=== PATIENT | female | born 1940 | race Caucasian/White ===

== ENCOUNTER → 2017-12-03 | Outpatient (CLI) | payer MEDICARE ==
[~2017-12-03] MED LIST: ALPR.5; ASPI325 PO; ATEN25; ATEN25 PO; ATOR10; CLOP75; ESCI10; LISI5; LOVA20 PO; NITR.4SL; OMEP10ER; OXYACE5T PO; POTCHL20ER PO; PROM25 PO; RXOXYACE PO; THYR60; UBID10 PO
[2017-12-03 12:14] LABS: CHOL/HDL RATIO 3.7; Cholesterol 256 mg/dL (50-200); HDL Cholesterol 69 mg/dL (>39); LDL/HDL RATIO 2.3; Low Density Lipoprotein Chol 159 mg/dL (0-110); Triglycerides 141 mg/dL (30-160); Very Low Density Lipoprot Chol 28 mg/dL (6-32)
== END ==
LOC: LAB 10:54 → LAB SHORT 10:54
PROVIDERS: Internal Medicine
DX: E78.5 Hyperlipidemia, unspecified (principal)
CPT/HCPCS: 80061

== ENCOUNTER → 2019-12-02 | Outpatient (CLI) | payer MEDICARE ==
[2019-12-02 17:38] LABS: Creatinine, Urine Random 94.6 mg/dL (27.00-270.00)
[2019-12-02 17:40] LABS: Microalb/Creat Ratio UR, Rand 67.759 mg/g (0.000-30.000); Microalbumin, Random Urine 64.1 mg/L (0.000-20.000)
== END | disposition home or self-care (01) ==
LOC: LAB 14:30 → LAB SHORT 14:30
PROVIDERS: Nurse Practitioner Family
DX: I25.10 Atherosclerotic heart disease of native coronary artery without angina pectoris (principal); J44.9 Chronic obstructive pulmonary disease, unspecified; J34.9 Unspecified disorder of nose and nasal sinuses; I10 Essential (primary) hypertension; E78.5 Hyperlipidemia, unspecified; E03.9 Hypothyroidism, unspecified; F32.9 Major depressive disorder, single episode, unspecified; M79.7 Fibromyalgia; E66.9 Obesity, unspecified; L85.3 Xerosis cutis; Z78.0 Asymptomatic menopausal state
CPT/HCPCS: 82043; 82570

== ENCOUNTER → 2022-10-26 | Outpatient (CLI) | payer MEDICARE | END | disposition home or self-care (01) | LOC: LAB SHORT 11:38 | DX: N39.0 Urinary tract infection, site not specified (principal) | CPT/HCPCS: 87086 ==

== ENCOUNTER 2023-01-19 03:42 | Inpatient (IN) | payer MEDICARE ==
[~2023-01-19] VITALS: Ht 157.5 cm; Wt 91.8 kg
[~2023-01-19 03:42] MED LIST changes: -ALPR.5; +ALPR.5 PO
[2023-01-19 04:41] LABS: BASOPHILS ABSOLUTE AUTO 0.07 K/mm3 (0.00-0.23); BASOPHILS PERCENT AUTO 1 % (0-2); EOSINOPHILS ABSOLUTE AUTO 0.32 K/mm3 (0.00-0.68); EOSINOPHILS PERCENT AUTO 3 % (0-6); Hematocrit 41.2 % (33.0-51.0); Hemoglobin 13.7 g/dL (11.5-16.0); IMMATURE GRAN ABSOLUTE AUTO 0.05 K/mm3 (0.00-0.10); IMMATURE GRAN PERCENT AUTO 0 % (0-1); LYMPHOCYTES ABSOLUTE AUTO 2.82 K/mm3 (0.84-5.20); LYMPHOCYTES PERCENT AUTO 22 % (21-46); MONOCYTES ABSOLUTE AUTO 1.14 K/mm3 (0.16-1.47); MONOCYTES PERCENT AUTO 9 % (4-13); Mean Corpuscular HGB 30.9 pg (26.0-34.0); Mean Corpuscular HGB Conc 33.3 g/dL (31.5-36.5); Mean Corpuscular Volume 93 fL (80-100); Mean Platelet Volume 9.8 fL (9.1-12.4); NEUTROPHILS ABSOLUTE AUTO 8.62 K/mm3 (1.96-9.15); NEUTROPHILS PERCENT AUTO 66 % (41-73); Platelet Count 278 K/mm3 (150-400); RDW Coefficient Variation 13.3 % (11.7-14.2); RDW Standard Deviation 45.4 fL (35.1-46.3); Red Blood Cell Count 4.43 M/mm3 (3.80-5.20); White Blood Cell Count 13.02 K/mm3 (4.00-11.30)
[2023-01-19] MEDS ORDERED: MULVITA PO (04:44)
[2023-01-19 05:02] LABS: Albumin, Blood 3.1 g/dL (3.4-5.0); Albumin/Globulin Ratio 0.8 (0.8-1.8); Bilirubin, Total 0.4 mg/dL (0.1-1.0); Bun/Creatinine Ratio 20.3 (12.0-20.0); Calcium, Blood 8.9 mg/dL (8.5-10.1); Creatinine, Blood 0.94 mg/dL (0.40-1.00); Total Protein, Blood 7.1 g/dL (6.4-8.2)
[2023-01-19 06:09] LABS: Source, Urine Clean Catch
[2023-01-19 06:17] LABS: Appearance, Urine Hazy (Clear); Bilirubin, Urine Neg (Neg); Blood, Urine 1+ (Neg); Color, Urine Pale Yellow (P-Yellow); Glucose Qualitative, Urine Neg (Neg); Ketones, Urine Neg (Neg); Leukocyte Esterase, Urine 3+ (Neg); Nitrite, Urine Neg (Neg); Protein, Urine 1+ (Neg); Specific Gravity, Urine 1.005 (1.003-1.022); Urobilinogen, Urine NORM (Normal); pH, Urine 6.5 (5.0-8.0)
[2023-01-19 06:18] LABS: Bacteria Few /hpf; Red Blood Cells, Urine 0-2 /hpf (0-2); Squamous Epithelial Cells Few /hpf (Few)
[2023-01-19 10:01] VITALS: BP 114/69
[2023-01-19 15:37] VITALS: BP 121/51
--- NOTE | 2023-01-19 17:53 | NUR ---
PT ARRIVED AT 1000 TO MEDICAL FLOOR ABLE TO TRANSFER SB ASSIST. PT A&O X4. PT VERY PLEASANT AND COOPERATIVE WITH CARE. PT DAUGHTER AT BEDSIDE THROUGHOUT SHIFT ALSO VERY PLEASANT. PT CONTINTENT TO BEDSIDE COMMODE. PT HAD LG CONTINENT BM THIS SHIFT. KCL NS RUNNING @ 75/HR. PT RECEIVING AMPICILLIN Q6. DR. AREVALO ARRIVED TO PT ROOM TO DISCUSS POSSIBLE SURGERY. SURGERY NOT NEEDED AT THIS TIME. PLAN TO CONTINUE IV ABX AND REASSESS IN A FEW DAYS. PT C/O PAIN IN LOWER LEFT ABDOMEN WITH PALPATION. PT RECEIVED TYLENOL FOR 7/10 PAIN IN HEAD. CALL LIGHT IN REACH. BED IN LOWEST POSITION. WILL CONTINUE TO MONITOR.
--- NOTE | 2023-01-19 18:34 | NUR ---
FIRE SAFETY DISCUSSED WITH PT ON ADMISSION. PT IS PREVIOUS SMOKER AND QUIT OVER 30 YEARS AGO. PT VERBALIZED UNDERSTANDING OF SAFETY PRECAUTIONS.
[2023-01-19 19:18] VITALS: BP 127/52
[2023-01-19] MEDS ORDERED: LEVSOD112 PO (20:10)
--- NOTE | 2023-01-20 | NUR ---
LEVOTHYROXINE CONFIRMED DAUGHTER CALLED TO CONFIRM LEVO DOSE 112 MCG FOR HOME MEDS.
[2023-01-20 02:05] VITALS: BP 144/52
[2023-01-20 03:59] LABS: BASOPHILS ABSOLUTE AUTO 0.04 K/mm3 (0.00-0.23); BASOPHILS PERCENT AUTO 0 % (0-2); EOSINOPHILS ABSOLUTE AUTO 0.37 K/mm3 (0.00-0.68); EOSINOPHILS PERCENT AUTO 4 % (0-6); Hematocrit 39.2 % (33.0-51.0); Hemoglobin 12.8 g/dL (11.5-16.0); IMMATURE GRAN ABSOLUTE AUTO 0.03 K/mm3 (0.00-0.10); IMMATURE GRAN PERCENT AUTO 0 % (0-1); LYMPHOCYTES ABSOLUTE AUTO 2.06 K/mm3 (0.84-5.20); LYMPHOCYTES PERCENT AUTO 22 % (21-46); MONOCYTES ABSOLUTE AUTO 0.83 K/mm3 (0.16-1.47); MONOCYTES PERCENT AUTO 9 % (4-13); Mean Corpuscular HGB 30.5 pg (26.0-34.0); Mean Corpuscular HGB Conc 32.7 g/dL (31.5-36.5); Mean Corpuscular Volume 94 fL (80-100); Mean Platelet Volume 9.8 fL (9.1-12.4); NEUTROPHILS ABSOLUTE AUTO 6.05 K/mm3 (1.96-9.15); NEUTROPHILS PERCENT AUTO 65 % (41-73); Platelet Count 237 K/mm3 (150-400); RDW Coefficient Variation 13.4 % (11.7-14.2); RDW Standard Deviation 45.9 fL (35.1-46.3); Red Blood Cell Count 4.19 M/mm3 (3.80-5.20); White Blood Cell Count 9.38 K/mm3 (4.00-11.30)
[2023-01-20 04:28] LABS: Free Thyroxine 1.02 ng/dL (0.70-1.60)
[2023-01-20 04:33] LABS: Bun/Creatinine Ratio 12.4 (12.0-20.0); Calcium, Blood 8.5 mg/dL (8.5-10.1); Creatinine, Blood 0.88 mg/dL (0.40-1.00); Thyroid Stimulating Hormone 5.25 uIU/mL (0.360-4.800)
--- NOTE | 2023-01-20 06:20 | NUR ---
SHIFT SUMMARY ADMIT FOR DIVERTICULITIS W/ ABSCESS. A&OX4, VSS, PT DENIES PAIN UNLESS PALPATING ABD, SOB, DIZZINESS. 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 1PERSON SBA TO [facility]. NO ACUTE CHANGES THIS SHIFT. CALL LIGHT W/IN REACH.
[2023-01-20 07:20] VITALS: BP 116/55
--- NOTE | 2023-01-20 17:43 | NUR ---
SHIFT SUMMARY: PT A&O X4. PT PLEASANT AND COOPERATIVE WITH CARE. IV ABX AND NS KCL CONTINUE TO RUN INTO IV. NEW IV PLACED IN LEFT FOREARM DUE TO PAIN/TENDERNESS IN PREVIOUS IV SITE. PT C/O PAIN IN BACK THIS SHIFT. HEAT PAD PROVIDED AND STATES SHE IS FEELING MUCH BETTER. PT HAD 3/10 PAIN IN LOWER LEFT QUADRANT THIS AM. TYLENOL PROVIDED. NO ISSUES WITH PAIN THIS AFTERNOON. PT HAVING SOLID BM'S W/O ISSUES. PER DR. AREVALO NOTE HOLDING ASPIRIN. PT MADE AWARE BY [employer] CONDITIONING APPRENTICE AND THIS RN DURING ROUNDS OF FLAMMABLE SOURCES AROUND OXYGEN. PT STATES UNDERSTANDING. CALL LIGHT IN PLACE, BED IN LOWEST POSITION. WILL CONTINUE TO MONITOR.
[2023-01-20 19:34] VITALS: BP 127/69
--- NOTE | 2023-01-20 20:20 | NUR ---
ANXIETY PT REPORTS HAVING A PANIC/ ANXIETY EPISODE. 0.25MG XANAX GIVEN THIS IS WHAT SHE TAKES AT HOME. CONTINUE TO MONITOR.
[2023-01-21 04:53] LABS: BASOPHILS ABSOLUTE AUTO 0.05 K/mm3 (0.00-0.23); BASOPHILS PERCENT AUTO 1 % (0-2); EOSINOPHILS ABSOLUTE AUTO 0.38 K/mm3 (0.00-0.68); EOSINOPHILS PERCENT AUTO 4 % (0-6); Hematocrit 36.5 % (33.0-51.0); IMMATURE GRAN ABSOLUTE AUTO 0.05 K/mm3 (0.00-0.10); IMMATURE GRAN PERCENT AUTO 1 % (0-1); LYMPHOCYTES ABSOLUTE AUTO 2.06 K/mm3 (0.84-5.20); LYMPHOCYTES PERCENT AUTO 22 % (21-46); MONOCYTES ABSOLUTE AUTO 0.82 K/mm3 (0.16-1.47); MONOCYTES PERCENT AUTO 9 % (4-13); Mean Corpuscular HGB 31.3 pg (26.0-34.0); Mean Corpuscular HGB Conc 32.9 g/dL (31.5-36.5); Mean Corpuscular Volume 95 fL (80-100); NEUTROPHILS ABSOLUTE AUTO 6.24 K/mm3 (1.96-9.15); NEUTROPHILS PERCENT AUTO 65 % (41-73); Platelet Count 231 K/mm3 (150-400); RDW Coefficient Variation 13.5 % (11.7-14.2); RDW Standard Deviation 47.2 fL (35.1-46.3); Red Blood Cell Count 3.83 M/mm3 (3.80-5.20)
[2023-01-21 05:16] LABS: Bun/Creatinine Ratio 9.8 (12.0-20.0); Calcium, Blood 8.3 mg/dL (8.5-10.1); Creatinine, Blood 0.92 mg/dL (0.40-1.00); Potassium, Blood 3.8 mmol/L (3.5-5.5)
--- NOTE | 2023-01-21 05:16 | NUR ---
SHIFT SUMMARY ADMIT FOR DIVERTICULITIS W/ ABSCESS. A&OX4 VERY PLEASANT. PT CONTINUES TO HAVE MUCUS DISCHARGE, REPORTED FROM BOWELS. SOFT BM'S X3 THIS SHIFT. ADULT BRIEFS IN PLACE FOR URGENCY INCONT OF BOWEL AND BLADDER, PT USE OF BSC W/ SBA/ INDEPEN. PT EXPERIENCED ANXIETY EPISODE THIS EVENING THAT WAS RELIEVED W/ 0.25MG XANAX. PT REPORTS OCCASIONALY ANXIETY/ PANIC ATTACKS AT HOME. NEW IV TO RIGHT FA PLACED R/T LEAKING L FA IV. NS KCL FLUIDS CONTINUED PER ORDERS. NO ACUTE CHANGES THIS SHIFT. WILL REPORT OFF TO DAY SHIFT STAFF.
[2023-01-21 07:43] VITALS: BP 125/106
--- NOTE | 2023-01-21 10:16 | NUR ---
EDUCATED ON FIRE SAFETY PT VERBALIZED UNDERSTANDING.
[2023-01-21 15:04] VITALS: BP 125/113
[2023-01-21 16:24] VITALS: BP 128/56
--- NOTE | 2023-01-21 18:06 | NUR ---
SUMMARY NO ACUTE CHANGES T/O SHIFT. PT WORKED WITH THERAPY AND AMBULATED IN GONZ[place]Z. GETTING UP TO BSC WITH MIN ASSIST. HAVING SOFT BMS AND VOIDING. PT PASSING MUCUS DISCHARGE RECTALLY, THIS EVENING IT WAS CARSON WITH VERY SLIGHT PINK TINGE. PT TOLERATING FULL LIQUID DIET. REVIEWED FIRE SAFETY WITH PT; PT VERBALIZED UNDERSTANDING AND DENIES ANY TOBACCO PRODUCTS OR LIGHTERS/MATCHES. CALL LIGHT IN REACH.
[2023-01-21 19:52] VITALS: BP 129/55
[2023-01-22 02:40] VITALS: BP 116/49
[2023-01-22 07:22] VITALS: BP 146/67
[2023-01-22] MEDS ORDERED: VISBIOME 112.51 EACH PO (09:34)
[2023-01-22] MEDS ORDERED: EUTHYROX125 MCG PO (09:34)
[2023-01-22] MEDS ORDERED: METR500 PO (09:35)
[2023-01-22] MEDS ORDERED: AMOCLA500 PO (09:35)
--- NOTE | 2023-01-22 10:17 | NUR ---
DENIES ANY ABD PAIN THIS AM, REPORTS TOLERATING FULL LIQUID DIET.
--- NOTE | 2023-01-22 11:17 | NUR ---
DC INSTRUCTIONS GIVEN, VERBALIZED UNDERSTANDING, PT TO DC HOME WITH DAUGHTER, RX CALLED TO [facility].
== END 2023-01-22 11:28 | disposition home or self-care (01) | DRG 392 ==
LOC: ER 03:42 → SURS 08:44 → MEDS 08:44 → ENPENDDIS 01-22 10:46 → MEDS 01-22 11:28
PROVIDERS: Emergency Medicine; ADMIT Internal Medicine
DX: K57.20 Diverticulitis of large intestine with perforation and abscess without bleeding (principal); N39.0 Urinary tract infection, site not specified; Z68.41 Body mass index [BMI] 40.0-44.9, adult; Q60.0 Renal agenesis, unilateral; E03.9 Hypothyroidism, unspecified; K21.9 Gastro-esophageal reflux disease without esophagitis; I10 Essential (primary) hypertension; E78.5 Hyperlipidemia, unspecified; F32.A Depression, unspecified; F41.9 Anxiety disorder, unspecified; I25.10 Atherosclerotic heart disease of native coronary artery without angina pectoris; K58.9 Irritable bowel syndrome, unspecified; E66.01 Morbid (severe) obesity due to excess calories; Z95.5 Presence of coronary angioplasty implant and graft; Z88.1 Allergy status to other antibiotic agents; Z88.5 Allergy status to narcotic agent; Z79.82 Long term (current) use of aspirin; Z79.899 Other long term (current) drug therapy; Z79.891 Long term (current) use of opiate analgesic; I25.2 Old myocardial infarction; Z87.891 Personal history of nicotine dependence; Z98.49 Cataract extraction status, unspecified eye; Z90.49 Acquired absence of other specified parts of digestive tract; Z98.890 Other specified postprocedural states; Z87.81 Personal history of (healed) traumatic fracture; Z87.442 Personal history of urinary calculi
CPT/HCPCS: 36415; 74177; 80048; 80053; 81001; 83690; 84439; 84443; 85025; 87086; 93005; 93010; 96365-59; 97161; 97165; 97530-CQ; 97535; 99285-25; A9270; J0295; J2543; J3480; Q9967

== ENCOUNTER 2023-08-28 02:11 | Inpatient (IN) | payer MEDICARE ==
[2023-08-28] VITALS (12 sets, daily range): BP systolic 11–125; BP diastolic 44–92
[~2023-08-28] VITALS: Ht 154.9 cm; Wt 69.2 kg
[~2023-08-28 02:11] MED LIST changes: +AMOCLA500 PO; -ASPI325 PO; +Aspir 8181 MG PO; -ESCI10; +ESCI10 PO; +EUTHYROX125 MCG PO; +LEVSOD112 PO; +METR500 PO; +MULVITA PO; +VISBIOME 112.51 EACH PO
[2023-08-28] MEDS ORDERED: NS 1,000 ML IV SCH ×2 (02:55→21:35)
[2023-08-28] MEDS ORDERED: Ketorolac Tromethamine 30mg Vial IV ONE (03:00)
[2023-08-28] MEDS ORDERED: Lidocaine 4% 1 Patch TOP ONE (03:40)
[2023-08-28 03:46] LABS: Albumin, Blood 3.6 g/dL (3.4-5.0); Albumin/Globulin Ratio 0.9 (0.8-1.8); Bilirubin, Total 0.8 mg/dL (0.1-1.0); Bun/Creatinine Ratio 23.7 (12.0-20.0); Calcium, Blood 8.6 mg/dL (8.5-10.1); Creatinine, Blood 0.89 mg/dL (0.40-1.00); Globulin, Blood 3.8 g/dL (2.2-4.0); Magnesium, Blood 1.5 mg/dL (1.6-2.4); Phosphorus, Blood 3.2 mg/dL (2.5-4.9); Potassium, Blood 4.6 mmol/L (3.5-5.5); Thyroid Stimulating Hormone 0.102 uIU/mL (0.360-4.800); Total Protein, Blood 7.4 g/dL (6.4-8.2)
[2023-08-28 03:52] LABS: D-Dimer, Quantitative 0.56 mg/L FEU (0.00-0.52); International Normalized Ratio 1.03; Prothrombin Time Results 10.8 Sec (9.7-11.5)
[2023-08-28 04:11] LABS: Influenza A, PCR NEGATIVE (NEGATIVE); Influenza B, PCR NEGATIVE (NEGATIVE); Resp Syncytial Virus, PCR NEGATIVE (NEGATIVE); SARS-Cov-2 (COVID-19) PCR, MMC NEGATIVE (NEGATIVE)
[2023-08-28 04:16] LABS: BASOPHILS ABSOLUTE AUTO 0.03 K/mm3 (0.00-0.23); BASOPHILS PERCENT AUTO 0 % (0-2); EOSINOPHILS ABSOLUTE AUTO 0.18 K/mm3 (0.00-0.68); EOSINOPHILS PERCENT AUTO 2 % (0-6); Hematocrit 29.1 % (33.0-51.0); Hemoglobin 9.5 g/dL (11.5-16.0); IMMATURE GRAN ABSOLUTE AUTO 0.03 K/mm3 (0.00-0.10); IMMATURE GRAN PERCENT AUTO 0 % (0-1); LYMPHOCYTES ABSOLUTE AUTO 1.62 K/mm3 (0.84-5.20); LYMPHOCYTES PERCENT AUTO 19 % (21-46); MONOCYTES ABSOLUTE AUTO 0.58 K/mm3 (0.16-1.47); MONOCYTES PERCENT AUTO 7 % (4-13); Mean Corpuscular HGB 30.9 pg (26.0-34.0); Mean Corpuscular HGB Conc 32.6 g/dL (31.5-36.5); Mean Corpuscular Volume 95 fL (80-100); Mean Platelet Volume 9.9 fL (9.1-12.4); NEUTROPHILS ABSOLUTE AUTO 6.04 K/mm3 (1.96-9.15); NEUTROPHILS PERCENT AUTO 71 % (41-73); Platelet Count 143 K/mm3 (150-400); RDW Coefficient Variation 14.2 % (11.7-14.2); RDW Standard Deviation 48.6 fL (35.1-46.3); Red Blood Cell Count 3.07 M/mm3 (3.80-5.20); White Blood Cell Count 8.48 K/mm3 (4.00-11.30)
[2023-08-28] MEDS ORDERED: Magnesium Sulf 2 GM/Water 50ML 50 ML IV ONE (04:20)
[2023-08-28] MEDS ORDERED: PROPRANOLOL HCL IV SCH (04:25)
[2023-08-28] MEDS ORDERED: Propranolol HCL 20 MG TAB PO ONE (04:40)
[2023-08-28 05:07] LABS: Free Thyroxine 1.84 ng/dL (0.70-1.60); Triiodothyronine, Free 2.85 pg/mL (2.18-3.98)
[2023-08-28] MEDS ORDERED: Diltiazem HCl 5 MG / ML 5ML Vial IV ONE (05:25)
[2023-08-28] MEDS ORDERED: Acetaminophen 325 MG TABLET PO PRN (05:55)
[2023-08-28] MEDS ORDERED: Ondansetron HCl 2 MG / ML 2ML Vial IV PRN ×2 (05:55→06:30)
[2023-08-28] MEDS ORDERED: FLU VACC QS2023-24(6MOS UP)/PF 60 MCG/0.5 ML SYRINGE IM ONE (05:55)
[2023-08-28] MEDS ORDERED: dilTIAZem HCL 125 MG in Dextrose 5% 100 ML IV SCH (06:00)
[2023-08-28] MEDS ORDERED: Metoprolol Tartrate 1 MG/ML 5 ML VIAL IV ONE (07:00)
[2023-08-28] MEDS ORDERED: Metoprolol Tartrate 1 MG/ML 5 ML VIAL IV PRN ×2 (07:00→11:55)
[2023-08-28] MEDS ORDERED: CefTRIAXone Sodium 1,000 MG in NS 50 ML IV SCH (07:30)
[2023-08-28] MEDS ORDERED: MetroNIDAZOLE 500MG/NS 100 ml 100 ML IV SCH (07:30)
[2023-08-28 08:34] LABS: Source, Urine Clean Catch
[2023-08-28 08:44] LABS: Appearance, Urine Clear (Clear); Bilirubin, Urine Neg (Neg); Blood, Urine Neg (Neg); Glucose Qualitative, Urine Neg (Neg); Ketones, Urine Neg (Neg); Leukocyte Esterase, Urine 2+ (Neg); Nitrite, Urine Neg (Neg); Protein, Urine Neg (Neg); Urobilinogen, Urine NORM (Normal)
[2023-08-28] MEDS ORDERED: Heparin Sodium,Porcine/0.5 NS 500 ML IV SCH (08:50)
[2023-08-28] MEDS ORDERED: Apixaban 5 MG Tab PO SCH (09:00)
[2023-08-28 09:19] LABS: Color, Urine Pale Yellow (P-Yellow)
[2023-08-28 09:25] LABS: Red Blood Cells, Urine 0-2 /hpf (0-2)
[2023-08-28 09:27] LABS: Bacteria Mod /hpf; Squamous Epithelial Cells Mod /hpf (Few)
--- NOTE | 2023-08-28 11:48 | NUR ---
PATIENT ADMIT TO PCU THIS AM AT 0830. ABLE TO STAND AND TRANSFER USING CANE AND ONE PERSON ASSIST. PERRLA, WEARING GLASSES. DAUGHTER TO BRING IN DENTURES AND HOME MEDICATIONS TO CONFIRM MED REC. ABLE TO MOVE ALL EXTREMITIES WNL. PATIENT SLIGHTLY WEAK IN LOWER EXTREMITIES. HISTORY OF FALLS. THIS RN EDUCATED ON FALL PREVENTION/CALL LIGHT. TELE SHOWING AFIB WITH HR 120-140'S. SBP 100-110'S. DENIES CHEST PAIN/PRESSURE/PALPIATIONS AT REST. OCCASIONAL PALPITATIONS FELT WITH ELEVATED HR. PPP. HEPARIN GTT INFUSING PER EMAR. IV LOPRESSOR GIVEN PER EMAR AND PATIENT CONVERTED FROM AFIB TO SR BACK TO AFIB. WHEN IN SR PATIENT HR 50-60'S. PATIENT OCCASIONALLY CONVERTING BACK TO SR BUT ONLY LAST 20-30 SECONDS IN SR BEFORE CONVERTING BACK TO AFIB. DR. HURTADO AWARE, THIS RN AT BEDSIDE FOR PROVIDER ROUNDING. THIS RN EDUCATED ON HEPARIN GTT AND FALL RISK. ON ROOM AIR SATING LOW-MID 90'S. PATIENT STATES SHE HAS HISTORY OF COPD BUT DOES NOT USE OXYGEN OR CPAP/BIPAP AT HOME. SOB WHEN UP TO BATHROOM. LUNGS SOUNDING CLEAR AND DIM IN BASES. EVEN AND UNLABORED RESPIRATIONS AT REST. DENIES COUGH. BOWEL TONES PRESENT. PATIENT WITH HISTORY OF COLITIS. PATIENT STATES HER ABDOMIN IS OCCASIONALY TENDER. FULL LIQUID DIET AT THIS TIME. LAST BOWEL MOVEMENT YESTERDAY. IV ABX GIVEN PER EMAR. PATIENT DRINKING PEPPERMINT TEA THIS AM. SBA TO BSC. URINE SAMPLE SENT TO LAB. SKIN OVERALL C/D/I WITH SOME SCATTERED BRUISING TO ARMS. PATIENT LAYING IN BED AT THIS TIME WATCHING TV. DENIES NEEDS. CALL LIGHT IN REACH.
[2023-08-28] MEDS ORDERED: ALPRAZolam 0.25 MG Tab PO PRN (11:55)
[2023-08-28] MEDS ORDERED: Metoprolol Tartrate 50 MG Tab PO ONE (12:00)
--- NOTE | 2023-08-28 12:48 | NUR ---
PATIENT CONVERTED TO SR AT THIS TIME WITH HR 60'S. SBP 120'S. PATIENT DENIES DIZZINESS. SITTING UP IN CHAIR AT THIS TIME EATING LUNCH. DENIES NEEDS.
[2023-08-28] MEDS ORDERED: Dose Adjust by Pharmacy XX STA (16:05)
[2023-08-28] MEDS ORDERED: MONT10T PO (16:26)
[2023-08-28] MEDS ORDERED: ALBU90OI INH (16:27)
[2023-08-28] MEDS ORDERED: Flonase 0.05% N16 GM (16:28)
--- NOTE | 2023-08-28 17:50 | NUR ---
SHIFT SUMMARY: NO ACUTE CHANGES. SEE PREVIOUS NOTES. PATIENT REMAINS IN SR WITH HR 50-60'S. SBP 100-110'S. DENIES CHEST PAIN/PRESSURE. PATIENT STATES HER STOMACH HAS BEEN FEELING BETTER. CONTINUES FULL LIQUID DIET. IV ABX INFUSED. HEPARIN GTT CONTINUES PER EMAR. FAMILY AT BEDSIDE THIS EVENING AND UPDATED BY THIS RN. UP TO CHAIR FOR MEALS. HOME MEDICATIONS BROUGHT IN BY DAUGHTER AND THIS RN UPDATED MED REC ADDING ALBUTEROL AND FLONASE. DENIES NEEDS AT THIS TIME, EATING DINNER SITTING UP. CALL LIGHT IN REACH.
[2023-08-28] MEDS ORDERED: Metoprolol Tartrate 50 MG Tab PO SCH (21:00)
[2023-08-28] MEDS ORDERED: Metoprolol Tartrate 25 MG Tab PO ONE (21:35)
--- NOTE | 2023-08-29 00:40 | NUR ---
ASSUMPTION OF CARE: PT ALERT AND ORIENTED X4, PLEASANT AND COOPERATIVE, MILD TRIBE. ON HEPARIN GTT AT 15U/KG/HR. VITALS HRR REMAINED SR 60-65 SBP WAS RUNNING LOW AT THE BEGINNING OF THE SHIFT 80-90'S WITH MAP <65 PT WAS SYMPTOMATIC UPON USING THE BEDSIDE COMMODE FEELING DIZZY, SATS ABOVE 95% ON RA, AFEBRILE. CALLED HOSPITALIST ABOUT BLOOD PRESSURE SINCE PT ALSO HAS METOPROLOL TARTRATE 50MG ORDERED AT BEDTIME. ORDER PLACED FOR 1 BAG ON NS AT 200MLS/HR, HOLD BETIME DOSE OF METOPROLOL AND GIVE 25MG INSTEAD. SBP HAS MAINTAINED >100 AT THSI TIME HRR STILL REMAINED SINUS. PT OFFERED HEATING PACK FOR RIGHT SHOULDER. PT NOW RESTING. PT HAS BEEN CALLING APPROPRIATELY, CALL LIGHTS IN REACH WILL CONTINUE TO MONITOR
[2023-08-29 03:27] VITALS: BP 117/58
[2023-08-29 04:55] LABS: BASOPHILS ABSOLUTE AUTO 0.03 K/mm3 (0.00-0.23); BASOPHILS PERCENT AUTO 0 % (0-2); EOSINOPHILS ABSOLUTE AUTO 0.36 K/mm3 (0.00-0.68); EOSINOPHILS PERCENT AUTO 5 % (0-6); Hematocrit 37.8 % (33.0-51.0); Hemoglobin 12.4 g/dL (11.5-16.0); IMMATURE GRAN ABSOLUTE AUTO 0.02 K/mm3 (0.00-0.10); IMMATURE GRAN PERCENT AUTO 0 % (0-1); LYMPHOCYTES ABSOLUTE AUTO 3.02 K/mm3 (0.84-5.20); LYMPHOCYTES PERCENT AUTO 39 % (21-46); MONOCYTES ABSOLUTE AUTO 0.62 K/mm3 (0.16-1.47); MONOCYTES PERCENT AUTO 8 % (4-13); Mean Corpuscular HGB 30.3 pg (26.0-34.0); Mean Corpuscular HGB Conc 32.8 g/dL (31.5-36.5); Mean Corpuscular Volume 92 fL (80-100); Mean Platelet Volume 9.8 fL (9.1-12.4); NEUTROPHILS ABSOLUTE AUTO 3.78 K/mm3 (1.96-9.15); NEUTROPHILS PERCENT AUTO 48 % (41-73); Platelet Count 204 K/mm3 (150-400); RDW Coefficient Variation 14.6 % (11.7-14.2); RDW Standard Deviation 49.4 fL (35.1-46.3); Red Blood Cell Count 4.09 M/mm3 (3.80-5.20); White Blood Cell Count 7.83 K/mm3 (4.00-11.30)
[2023-08-29 05:16] LABS: Bun/Creatinine Ratio 16.5 (12.0-20.0); Calcium, Blood 8.1 mg/dL (8.5-10.1); Creatinine, Blood 0.85 mg/dL (0.40-1.00); Potassium, Blood 3.9 mmol/L (3.5-5.5)
--- NOTE | 2023-08-29 05:28 | NUR ---
PT SUMMARY: SEE PREVIOUS NOTE; NO REPORTED DIZZINESS T/O THE NIGHT AFTER THE ONE EPISODE AT THE BEGINNING OF SHIFT, PT HAS BEEN GETTING UP TO USE BSC. NS 1 BAG WAS INFUSED. VITALS HRR SR 60'S, SBP 100-110'S MAP ABOVE 65, SATS ABOVE 95% ON RA, AFEBRILE. HEP GTT WITH NO CHANGES IN RATE SETTINGS STILL AT 15U/KG/HR. PT HAS BEEN CALLING APPROPRIATELY, DENIES ABD/CHEST PAIN/DISCOMFORT, PT RESTED WELL MOST OF THE SHIFT. NO OTHER ISSUES OR COMPLAINS T/O NIGHT. WILL REPORT TO ONCOMING SHIFT
[2023-08-29] MEDS ORDERED: Dose Adjust by Pharmacy XX STA (06:01)
[2023-08-29 07:47] VITALS: BP 124/63
[2023-08-29] MEDS ORDERED: Citalopram Hydrobromide 20 MG Tab PO SCH (09:00)
[2023-08-29] MEDS ORDERED: Enoxaparin 40 MG/0.4 ML SYR SC SCH (09:00)
[2023-08-29] MEDS ORDERED: Rivaroxaban 10 MG Tab PO SCH ×2 (09:07→10:00)
[2023-08-29] MEDS ORDERED: Metoprolol Tartrate 25 MG Tab PO SCH (09:35)
--- NOTE | 2023-08-29 10:55 | NUR ---
AM NOTE: PATIENT ALERT AND ORIENTED, SLEEPY THIS AM. DENIES NUMBNESS/TINGLING. USES CANE AT BASELINE. UP WITH CANE AND SBA. SLIGHT WEAKNESS NOTED WHEN UP. MEDICAL STATUS WITH TELE. TELE SHOWING SR WITH HR 50-70'S. BP STABLE. PO XARELTO STARTED THIS AM. DENIES CHEST PAIN/PRESSURE/PALPITATIONS. NO EDEMA NOTED. THIS RN EDUCATED ON PO XARELTO AND METOPROLOL. ON ROOM AIR SATING ABOVE 95%. DENIES SOB/COUGH. HISTORY OF COPD WITH OCCASIONALY WHEEZING. LUNGS SOUNDING CLEAR AND DIM IN BASES THIS AM. SOME SOB WHEN UP TO BATHROOM. BOWEL TONES PRESENT. SOFT STOOLS. DENIES ABDOMINAL PAIN/NAUSEA. ON IV ABX FOR COLITIS. FULL LIQUID DIET AT THIS TIME AND PATIENT TOLERATING WELL. UP TO BSC WITH SBA. SKIN OVERALL C/D/I WITH SOME SCATTERED BRUISING ON BILATERAL ARMS. CALL LIGHT IN REACH. DAUGHTER AT BEDSIDE THIS AM AND UPDATED BY THIS RN. DENIES NEEDS.
[2023-08-29 11:42] VITALS: BP 127/55
[2023-08-29 16:02] VITALS: BP 99/61
--- NOTE | 2023-08-29 18:36 | NUR ---
SHIFT SUMMARY: NO ACUTE CHANGES. PATIENT HAS REMAINS SR THROUGHOUT SHIFT. DENIES CHEST PAIN/PRESSURE. VITAL SIGNS STABLE. ON ROOM AIR SATING MID 90'S. TOLERATING FULL LIQUID DIET. IV ABX INFUSED THIS SHIFT. UP OT BATHROOM WITH SBA. LOOSE BOWEL MOVMENTS. ABLE TO MAKE NEEDS KNOWN AND USING CALL LIGHT. FMAILY UPDATED WITH PATIENT PERMISSION BY THIS RN. CALL LIGHT IN REACH, PATIENT DENIES NEEDS AT THIS TIME.
[2023-08-29 19:47] VITALS: BP 139/54
[2023-08-30] VITALS (15 sets, daily range): BP systolic 110–164; BP diastolic 50–100
[2023-08-30 03:55] LABS: BASOPHILS ABSOLUTE AUTO 0.05 K/mm3 (0.00-0.23); BASOPHILS PERCENT AUTO 1 % (0-2); EOSINOPHILS PERCENT AUTO 5 % (0-6); Hematocrit 38.8 % (33.0-51.0); Hemoglobin 12.7 g/dL (11.5-16.0); IMMATURE GRAN ABSOLUTE AUTO 0.02 K/mm3 (0.00-0.10); IMMATURE GRAN PERCENT AUTO 0 % (0-1); LYMPHOCYTES ABSOLUTE AUTO 2.56 K/mm3 (0.84-5.20); LYMPHOCYTES PERCENT AUTO 30 % (21-46); MONOCYTES ABSOLUTE AUTO 0.67 K/mm3 (0.16-1.47); MONOCYTES PERCENT AUTO 8 % (4-13); Mean Corpuscular HGB 30.4 pg (26.0-34.0); Mean Corpuscular HGB Conc 32.7 g/dL (31.5-36.5); Mean Corpuscular Volume 93 fL (80-100); Mean Platelet Volume 9.9 fL (9.1-12.4); NEUTROPHILS ABSOLUTE AUTO 4.77 K/mm3 (1.96-9.15); NEUTROPHILS PERCENT AUTO 56 % (41-73); Platelet Count 205 K/mm3 (150-400); RDW Coefficient Variation 14.6 % (11.7-14.2); RDW Standard Deviation 49.8 fL (35.1-46.3); Red Blood Cell Count 4.18 M/mm3 (3.80-5.20); White Blood Cell Count 8.47 K/mm3 (4.00-11.30)
[2023-08-30 04:24] LABS: Bun/Creatinine Ratio 12.8 (12.0-20.0); Calcium, Blood 8.5 mg/dL (8.5-10.1); Creatinine, Blood 0.78 mg/dL (0.40-1.00); Potassium, Blood 3.9 mmol/L (3.5-5.5)
[2023-08-30] MEDS ORDERED: Levothyroxine Sodium 0.075 MG Tab PO SCH (06:00)
--- NOTE | 2023-08-30 06:01 | NUR ---
PT SUMMARY: NO ACUTE EVENT T/O SHIFT VITALS HAS BEEN STABLE HRR REMAIEND SR 60-80'S, SBP 130'S, SATS ABOVE 95% ON RA, AFEBRILE. DENIES CHEST PAIN/PRESSURE. PT HAS BEEN CALLING APPROPRIATELY, HAS BEEN USING THE BEDSIDE COMMODE SBA FOR TRANSFERS. PT CONTINUES ON IV ABO. NO OTHER ISSUES ENCOUNTERED FOR BERNADINE SHIFT. PT EXPECTING TO GO HOME TODAY IF STABLE. WILL REPORT TO ONCOMING SHIFT
--- NOTE | 2023-08-30 10:53 | NUR ---
AM NOTE this rn assumed care at 0700. vital signs stable. tele sr 50-70s. bedside report done with hemant rn. patient is alert and oriented x4. perrla. patient is able to make needs known and uses call light approrpiately. patient is a one person stand by with her cane. patient reports no chest pain/pressure, shortness of breath or pain. patient has expiratory wheeze in lower lung sutton. see shift assessment for further detials. plan is for patient to go home today. this rn updated family in the room. plan of care is up to date
[2023-08-30] MEDS ORDERED: Albuterol 2.5 MG/3 ML VIAL INH PRN (11:40)
[2023-08-30] MEDS ORDERED: dilTIAZem HCL 125 MG in Dextrose 5% 100 ML IV SCH (15:55)
--- NOTE | 2023-08-30 15:55 | NUR ---
THIS RN CONTACTED BY PT PRIMARY RN, LOURDES, ABOUT PT HR AND PULSE. PT HR SHOWED 150'S SPO2. THIS RN PALPATED PULSE, HR RAPID TO PALPATION. EKG BROUGHT TO BEDSIDE, SHOWED AFIB WITH A RAPID RATE. PT REPROTED "FEELS LIKE I CAN'T CATCH MY BREATH." THIS RN CONTACTED MD AFTER EKG AND UPDATED MD. PT TO BE PCU STATUS AND TELE TO BE ORDERED. MD ORDERED THIS RN TO HAVE PT STARTED BACK ON CARDIZEM GTT. THIS RN UPDATED PRIMARY RN OF CARDIZEM GTT TO BE ORDERED.
[2023-08-30] MEDS ORDERED: Diltiazem HCl 5 MG / ML 5ML Vial IV ONE ×3 (16:00→23:50)
[2023-08-30] MEDS ORDERED: Diltiazem HCl 5 MG / ML 5ML Vial ONE (16:01)
--- NOTE | 2023-08-30 16:38 | NUR ---
UPDATE this rn called md valdez after didi rn spoke with him. this rn called to inform heart rate touched 202 and sustaining the 150-170 range. md valdez placed a cardizem push of 10mg and dilt drip started. patient heart rate continued to sustain in the 150s and a metoprolol push, see emar. cardizem drip at 15mg/hr. heart rate now sustaining in the 115-140s and will occasionally touch into the 150s. patient during this was symptomatic, complaining of shortness of breath, pain in stomach, chest, head, and arms. patient reported having a history of panic attacks and was trying to calm herself with myla and this rn and fire extinguisher charger at bedside talking for distraction. this rn informed the patient she has xanax she can have to help and patient wanted this. medication given and patient verbalized decrease in anxiety.
--- NOTE | 2023-08-30 17:38 | NUR ---
AFIB-SR telephone service adviser called this rn at 1735 that patient converetted to srr in the 60s. this rn into room and turned off cardimelisam drip.
[2023-08-30] MEDS ORDERED: dilTIAZem HCL 120 MG CAP.CD PO ONE (17:50)
--- NOTE | 2023-08-30 18:14 | NUR ---
SHIFT SUMMARY see previous notes for changes. tele is still sinus in the 60s. patient neuro is intact, and is able to make needs known. patient uses call light appropriately. family currently at bedside and updated on plan. plan of care is up to date.
--- NOTE | 2023-08-30 23:00 | NUR ---
UPDATE THIS RN TO ROOM MONITOR ALARMING FOR AFIB RVR. HR 140. PATIENT STATED SHE WAS SLEEPING AND WOKE UP AND FELT HER HEART FLUTTERING. BP STABLE. CALL PLACED TO HOSPITALIST DR. CLARK. ORDER RECIEVED FOR OT DOSE OF CARDIZEM.
--- NOTE | 2023-08-30 23:50 | NUR ---
UPDATE PATIENT'S HR CONTINUES TO BE ELEVATED AT 130-140s REGARDLESS OF CARDIZEM PUSH. CALL PLACED TO HOSPITALIST DR. VAZQUEZ WITH UPDATE. ORDER RECIEVED FOR ADDITIONAL 10MG DOSE OF CARDIZEM. PER DR. VAZQUEZ, IF NOT EFFECTIVE, RESTART CARDIZEM GTT. BP REMAINS STABLE. PATIENT REPORTING SLIGHT CHEST PRESSURE BUT REFERS TO IT "FLUTTERING" IN HER CHEST.
[2023-08-31] VITALS (13 sets, daily range): BP systolic 90–135; BP diastolic 47–104
--- NOTE | 2023-08-31 06:22 | NUR ---
SHIFT SUMMARY PATIENT ALERT AND ORIENTED x4, ABLE TO MAKE NEEDS KNOWN TO STAFF. DAUGHTER AT BEDSIDE DURING THE NIGHT. BP STABLE. PATIENT CONVERTED BACK INTO AFIB THIS SHIFT, HR 100-130s. CARDIZEM GTT INFUSING, SEE FLOWSHEET FOR TITRATIONS. SEE PREVIOUS NOTES. PATIENT ON RA WITH SPO2 >90%. PATIENT AMBULATING TO BATHROOM/BEDSIDE COMMODE WITH DAUGHTER'S ASSISTANCE. MEDICATED PER EMAR FOR ANXIETY. NO OTHER CHANGES DURING THE NIGHT, WILL REPORT TO DAY SHIFT RN.
[2023-08-31] MEDS ORDERED: dilTIAZem HCL 120 MG CAP.CD PO SCH ×2 (09:00→21:00)
--- NOTE | 2023-08-31 10:15 | NUR ---
am note this rn assumed care at 0700. tele afib/aflutter 120s. on cardizem drip at 10mg/hr. vital signs stable. patient is alert and oriented x4. perrla. patient is able to make needs known and uses call light appropriately. patient denies chest pain/pressure, pain, or shortness of breath. md valdez in to see patient this am and discussed plan of care. oral cardizem order in addition to the drip. patient received a 5mg push of metoprolol which brought the rate into the 80-110s. patient is having multiple sinus pauses 3-4 seconds. patient had a pause that lasted 6.34 seconds followed by junctinal beats. this rn called md valdez, and md valdez is going to discuss it with cardiology. patient is symptomatic with these pauses. cardizem is still infusing at a rate of 5mg/hr. see shift assessment for further detials. at this time plan is up to date
--- NOTE | 2023-08-31 11:59 | NUR ---
amio drip patient received amio bolus and drip infusing. patient bp stable. heart rate afib/aflutter 90-120s.
--- NOTE | 2023-08-31 18:17 | NUR ---
SHIFT SUMMARY see previous notes for updates throughout the day. patient is still aflutter 90-120s. amio drip is at 16.6ml/hr. see emar. no acute changes.
[2023-09-01] VITALS (11 sets, daily range): BP systolic 93–143; BP diastolic 61–78
[2023-09-01 05:12] LABS: BASOPHILS ABSOLUTE AUTO 0.04 K/mm3 (0.00-0.23); BASOPHILS PERCENT AUTO 1 % (0-2); EOSINOPHILS ABSOLUTE AUTO 0.47 K/mm3 (0.00-0.68); EOSINOPHILS PERCENT AUTO 6 % (0-6); Hematocrit 41.3 % (33.0-51.0); Hemoglobin 13.3 g/dL (11.5-16.0); IMMATURE GRAN ABSOLUTE AUTO 0.02 K/mm3 (0.00-0.10); IMMATURE GRAN PERCENT AUTO 0 % (0-1); LYMPHOCYTES ABSOLUTE AUTO 2.33 K/mm3 (0.84-5.20); LYMPHOCYTES PERCENT AUTO 29 % (21-46); MONOCYTES PERCENT AUTO 9 % (4-13); Mean Corpuscular HGB Conc 32.2 g/dL (31.5-36.5); Mean Corpuscular Volume 93 fL (80-100); Mean Platelet Volume 9.7 fL (9.1-12.4); NEUTROPHILS ABSOLUTE AUTO 4.52 K/mm3 (1.96-9.15); NEUTROPHILS PERCENT AUTO 56 % (41-73); Platelet Count 233 K/mm3 (150-400); RDW Coefficient Variation 14.4 % (11.7-14.2); RDW Standard Deviation 49.2 fL (35.1-46.3); Red Blood Cell Count 4.44 M/mm3 (3.80-5.20); White Blood Cell Count 8.08 K/mm3 (4.00-11.30)
[2023-09-01 05:55] LABS: Bun/Creatinine Ratio 7.7 (12.0-20.0); Calcium, Blood 8.5 mg/dL (8.5-10.1); Creatinine, Blood 0.78 mg/dL (0.40-1.00); Free Thyroxine 1.34 ng/dL (0.70-1.60); Magnesium, Blood 1.7 mg/dL (1.6-2.4); Potassium, Blood 3.6 mmol/L (3.5-5.5); Thyroid Stimulating Hormone 0.176 uIU/mL (0.360-4.800)
--- NOTE | 2023-09-01 05:56 | NUR ---
SHIFT SUMMARY PATIENT ALERT AND ORIENTED x4, ABLE TO MAKE NEEDS KNOWN TO STAFF. DAUGHTER AT BEDSIDE DURING THE NIGHT. MEDICATED PER EMAR FOR ANXIETY. BP STABLE. TELE READING AFIB/AFLUTTER 100-120s, AT TIMES 130-140s. AMIO GTT INFUSING PER EMAR. PATIENT DENYING CHEST PAIN DURING THE NIGHT AND EVEN REPORTED "I FEEL A LOT BETTER THAN YESTERDAY" REGARDLESS OF RHYTHM. PATIENT ON RA WITH SPO2 >90%. PATIENT STANDBY ASSIST TO BEDSIDE COMMODE, ADEQUATE OUTPUT DURING THE NIGHT, OCCASIONAL LOOSE STOOLS. POWERGLIDE PLACED THIS SHIFT. NO OTHER CHANGES DURING THE NIGHT, WILL REPORT TO DAY SHIFT RN.
--- NOTE | 2023-09-01 17:15 | NUR ---
SHIFT SUMMARY NO ACUTE CHANGES THIS SHIFT. PT HAS REMAINED AWAKE, ALERT, AND ORIENTED. PT HAS COMPLAINED OF MILD ANXEITY THIS MORNING. PT MED WITH XANAX PER EMAR WITH GOOD RELIEF. PT WITH HR 100-130'S AFIB THIS SHIFT, WITH BREIF CONVERSION TO NSR 60'S THIS AFTERNOON. PT CURRENTLY BACK TO AFIB AT THIS TIME. PT TRANSITIONED OFF AMIODARONE GTT AND TO BE STARTING PO AMIODARONE THIS EVENING. PT TO BE NPO AT MIDNIGHT FOR POTENTIAL PACEMAKER PLACEMENT TOMORROW PER DR MANCIA. IV'S SALINE LOCKED. PT TAKING IN GOOD PO INTAKE. PT UP TO BSC WITH ASSISTANCE THIS SHIFT. PT DAUGHTER AND OTHER FAMILY MEMBERS AT BEDSIDE THIS AFTERNOON. VITAL SIGNS STABLE. PT ON ROOM AIR. WILL CONTINUE TO MONITOR AND REPORT OFF TO ONCOMING RN.
[2023-09-01] MEDS ORDERED: Amiodarone HCl 200 MG Tab PO SCH (21:00)
[2023-09-01] MEDS ORDERED: Diltiazem HCl 5 MG / ML 5ML Vial IV ONE ×2 (21:55→22:45)
--- NOTE | 2023-09-01 22:08 | NUR ---
UPDATE PT'S HR MAINTAINING IN THE 130-150 RANGE DESPITE ADMINISTRATION OF SCHEDULED PO CARDIZEM AND AMIO. PT IS ASYMPOMATIC DENYING CP, PRESSURE, PALPITATIONS, OR SOB. SBP REMAINS STABLE RANGING 100-130'S. PT REPORTS ADVERSE REACTION TO PRN IV LOPRESSOR SAYING, "I FEEL ABSOLUTELY TERRIBLE WHEN I GET THAT STUFF. IT MAKES ME WANT TO VOMIT AND I GET REALLY SWEATY". DR. SCHMIDT NOTIFIED OF PT'S CURRENT SITUATION WITH ORDERS TO ADMINISTER IV CARDIZEM 10MG. NO FURTHER ORDERS AT THIS TIME.
--- NOTE | 2023-09-01 22:45 | NUR ---
UPDATE DR. SCHMIDT NOTIFIED OF PT'S HR SUSTAINING 130-150 RANGE DESPITE PREVIOUS CARDIZEM PUSH. NEW ORDERS FOR ANOTHER IV CARDIZEM 10MG TO BE GIVEN. PT CONTINUES TO REMAIN ASYMPTOMATIC AT THIS TIME. SBP RANGING 100-120'S.
[2023-09-02] VITALS (15 sets, daily range): BP systolic 94–139; BP diastolic 52–90
--- NOTE | 2023-09-02 00:08 | NUR ---
UPDATE DR. BALL NOTIFIED AGAIN OF PT HR SUSTAINING 130-150'S DESPITE SECOND DOSE OF IV CARDIZEM. PT REMAINS ASYMPTOMATIC WITH BLOOD PRESSURES REMAINING STABLE. SEE DOCUMENTED VS FOR DETAILS. NEW ORDERS GIVEN TO START PT ON CARDIZEM PUSH. NO NEW ORDERS AT THIS TIME.
[2023-09-02] MEDS ORDERED: dilTIAZem HCL 125 MG in Dextrose 5% 100 ML IV SCH (00:20)
--- NOTE | 2023-09-02 01:47 | NUR ---
UPDATE DR. SCHMIDT NOTIFIED AGAIN OF PT'S HR SUSTAINING 130-150'S DESPITE RECEIVING CARDIZEM gtt AT MAX RATE OF 15MG/HR. NO NEW ORDERS GIVEN AT THIS TIME. MD TO BE CALLED IF PT BEGINS TO BE SYMPOMATIC OR IF HR SUSTAINS IN THE 150'S. OF THIS NOTE, PT IS ASYMPOMATIC WITH SBP RANGING 100-120'S.
--- NOTE | 2023-09-02 05:32 | NUR ---
SHIFT SUMMARY A/Ox4 AND COOPERATIVE WITH CARE. ANSWERS QUESTIONS APPROPRIATELY AND ABLE TO MAKE HER NEEDS KNOWN. INTERMITTENT EPISODES OF ANXIETY NOTED, MANAGED WELL WITH PRN XANAX. CARDIAC, REMAINS IN AFIB RANGING 120-140'S WITH SOME IMPROVEMENT NOTED WITH CARDIZEM gtt. SEE UPDATE NOTES FOR MORE DETAILS. SBP REMAINS STABLE RANGING 100-120'S. CONTINUES TO BE ASYMPTOMATIC OF INCREASED HR. RESPIRATORY, MAINTAINS SPO2 >90% ON RA. INTERMITTENT PRODUCTIVE COUGH NOTED. GI/, REMAINS CONTINENT/INCONTINENT OF URINE AND STOOL. ABLE TO STAND PIVOT TO BSC WITH MINIMAL ASSISTANCE. PT HAS REMAINED NPO SINCE MDN FOR POTENTIAL PROCEDURE THIS AM. NO NEW ORDERS AT THIS TIME, WILL REPORT TO ONCOMING RN. MAKAYLA PETIT OF THIS NOTE.
[2023-09-02] MEDS ORDERED: Heparin Sodium,Porcine/0.5 NS 500 ML IV SCH (09:30)
[2023-09-02 09:39] LABS: Bun/Creatinine Ratio 7.2 (12.0-20.0); Calcium, Blood 8.2 mg/dL (8.5-10.1); Creatinine, Blood 0.83 mg/dL (0.40-1.00); Magnesium, Blood 1.7 mg/dL (1.6-2.4); Potassium, Blood 3.8 mmol/L (3.5-5.5)
--- NOTE | 2023-09-02 14:35 | NUR ---
Cardizem turned off at approx 1340; pt sinus 60-70's.
--- NOTE | 2023-09-02 17:06 | NUR ---
Shift Summary Pt alert, oriented, forgetful at times; able to make needs known. Pt resting in bed, up with 1 person assist to chair/bathroom with walker. Pt deneis pain, chest pain/pressure, sob, nausea, and dizziness. Spo2 >90% on ra, breathing even and unlabored. Tele afib/aflutter 90-130's this am, on 15 mg/hr; at approx 1245 pt rhythm changes to sinus 60-80's and titrated off cardizme gtt, this evening at approx 1640 pt back to afib/aflutter and restarted on cardizem at 5 mg/hr. Abd soft, tender, +BT t/o. Other vss. No other acute changes noted. Xarelto transitioned to heparin in anticipation for pacemaker later this week. Will continue to monitor.
[2023-09-02] MEDS ORDERED: Lactobacil 2-S.Thermo-Bifido 1 1 Cap PO SCH (21:00)
[2023-09-03] MEDS ORDERED: Clarify Drug Order XX ONE (00:50)
[2023-09-03 04:11] VITALS: BP 123/54
--- NOTE | 2023-09-03 05:35 | NUR ---
SHIFT SUMMARY A/Ox4 AND COOPERATIVE WITH CARE. ANSWERS QUESTIONS APPROPRIATELY AND ABLE TO MAKE HER NEEDS KNOWN. CAN BE FORGETFUL AT TIMES, BUT EASILY REDIRECTABLE. INTERMITTENT EPISODES OF ANXIETY NOTED, MANAGED WELL WITH PRN XANAX. CARDIAC, HAS INTERMITTENTLY SWITCHED BETWEEN SINUS RHYTHM AND AFIB/FLUT. THROUGHOUT THE NIGHT. CARDIZEM gtt IN PLACE AND INFUSING PER EMAR. SBP REMAINS STABLE RANGING 100-130'S. RESPIRATORY, MAINTAINS SPO2 >90% ON RA. INTERMITTENT PRODUCTIVE COUGH NOTED. GI/, HAS BEEN CONTINENT THIS SHIFT. SEVERAL SOFT/LIQUID STOOLS NOTED. ABLE TO STAND PIVOT TO BSC WITH MINIMAL ASSISTANCE. HEPARIN gtt IS BEING MANAGED BY PHARMACY AND HAS BEEN IN INFUSING ORDERED PER EMAR. NO NEW ORDERS AT THIS TIME, WILL REPORT TO ONCOMING RN. MAKAYLA PETIT OF THIS NOTE.
[2023-09-03 07:07] LABS: Hematocrit 45.6 % (33.0-51.0); Hemoglobin 15.2 g/dL (11.5-16.0); Mean Platelet Volume 10.3 fL (9.1-12.4); Platelet Count 243 K/mm3 (150-400)
[2023-09-03] MEDS ORDERED: Dose Adjust by Pharmacy XX STA ×3 (07:37→21:59)
[2023-09-03 07:58] VITALS: BP 120/51
[2023-09-03] MEDS ORDERED: Mag Sulfate 1 GM/D5% 100ML 100 ML IV STA (11:05)
[2023-09-03] MEDS ORDERED: Potassium Chloride 20 MEQ TabCR PO ONE (12:00)
[2023-09-03 12:08] VITALS: BP 120/51
[2023-09-03 15:54] VITALS: BP 101/49
--- NOTE | 2023-09-03 16:36 | NUR ---
Patient is sitting on a chair and alert. She tells me about her medical history and of the plan for an installation of a pacemaker next day. She states that she is only minimally concerned about the surgery. She then talks about her family of two sons and one dtr and their families. She talks about how her dtrMichael Do, and her family live with her and have for the past 11 yrs. She shares about the challenging life she has had and the things that she has overcome to raise her three kids as a single mom and carve out a life with very little resouces. She explains to me about her strong belief in God. I normalize her feelings and concerns, reinforce her strengths and darius and provide therapeutic listening and prayer ( prayer for her, her family and for her upcoming procedure). Patient repsonded well and showed signs of reduced stress. I will continue to remain available to patient and family.
--- NOTE | 2023-09-03 18:50 | NUR ---
Shift Summary Pt alert, oriented x4; calm and cooperative with care. Up in chair for majority of shift. Pt is able to make needs known. Pt denies pain, chest pain/pressure, sob, nasuea, dizziness and numb/tingling. Spo2 >90% on ra, breathing even and unlabored. At this time pt at 70-80's sinus, intermittent afib/aflutter 110-130's medicated with cardizem gtt; bp stable. On heparin gtt, plans to stop at 0800 09/04/23 for pacemaker placement. Ab soft, nontender, +bt t/o. other vss. No other acute changes noted. will continue to monitor.
[2023-09-03 19:56] VITALS: BP 118/51
[2023-09-04] VITALS (19 sets, daily range): BP systolic 102–138; BP diastolic 47–99
--- NOTE | 2023-09-04 05:03 | NUR ---
SHIFT SUMMARY A/Ox4 AND COOPERATIVE WITH CARE. ANSWERS QUESTIONS APPROPRIATELY AND ABLE TO MAKE HER NEEDS KNOWN. ANXIETY WELL MANAGED WITH PRN XANAX. CARDIAC, HAS REMAINED IN SR 60-80'S THROUGHOUT THE NIGHT WITH NO CONVERSION INTO AFIB/AFLUTTER. CARDIZEM gtt REMAINS ON STANDBY. SBP REMAINS STABLE RANGING 100-120'S. RESPIRATORY, MAINTAINS SPO2 >90% ON RA. INTERMITTENT PRODUCTIVE COUGH NOTED WITH THICK WHITE SPUTUM. GI/, ABLE TO STAND PIVOT TO BSC WITH STAFF ASSIST TO VOID. HEPARIN gtt IS BEING MANAGED BY PHARMACY AND HAS BEEN IN INFUSING ORDERED PER EMAR. HEPARIN TO BE TURNED OFF AT 0800 PER MD ORDERS. PT HAS REMAINED NPO SINCE MDN FOR POTENTIAL PROCEDURE THIS AM. NO NEW ORDERS AT THIS TIME, WILL REPORT TO ONCOMING RN. MAKAYLA PETIT OF THIS NOTE.
[2023-09-04 05:23] LABS: BASOPHILS ABSOLUTE AUTO 0.06 K/mm3 (0.00-0.23); BASOPHILS PERCENT AUTO 1 % (0-2); EOSINOPHILS PERCENT AUTO 6 % (0-6); Hematocrit 36.7 % (33.0-51.0); Hemoglobin 12.2 g/dL (11.5-16.0); IMMATURE GRAN ABSOLUTE AUTO 0.04 K/mm3 (0.00-0.10); IMMATURE GRAN PERCENT AUTO 1 % (0-1); LYMPHOCYTES ABSOLUTE AUTO 2.58 K/mm3 (0.84-5.20); LYMPHOCYTES PERCENT AUTO 32 % (21-46); MONOCYTES ABSOLUTE AUTO 0.65 K/mm3 (0.16-1.47); MONOCYTES PERCENT AUTO 8 % (4-13); Mean Corpuscular HGB 30.8 pg (26.0-34.0); Mean Corpuscular HGB Conc 33.2 g/dL (31.5-36.5); Mean Corpuscular Volume 93 fL (80-100); Mean Platelet Volume 9.7 fL (9.1-12.4); NEUTROPHILS PERCENT AUTO 52 % (41-73); Platelet Count 242 K/mm3 (150-400); RDW Coefficient Variation 14.8 % (11.7-14.2); RDW Standard Deviation 50.4 fL (35.1-46.3); Red Blood Cell Count 3.96 M/mm3 (3.80-5.20); White Blood Cell Count 8.03 K/mm3 (4.00-11.30)
[2023-09-04 05:43] LABS: Bun/Creatinine Ratio 5.3 (12.0-20.0); Calcium, Blood 8.3 mg/dL (8.5-10.1); Creatinine, Blood 0.75 mg/dL (0.40-1.00); Potassium, Blood 3.8 mmol/L (3.5-5.5)
[2023-09-04] MEDS ORDERED: Dose Adjust by Pharmacy XX STA (06:00)
[2023-09-04] MEDS ORDERED: CeFAZolin Sodium 1000 mg Vial ONE (13:08)
[2023-09-04] MEDS ORDERED: NS 1,000 ML IV ONE ×2 (13:08→14:00)
[2023-09-04] MEDS ORDERED: Heparin Sodium 1000 Units/ML 10ML MDV ONE (13:08)
[2023-09-04] MEDS ORDERED: Midazolam HCl 1MG / ML 2ML Vial ONE (14:00)
[2023-09-04] MEDS ORDERED: FentaNYL Citrate 50 MCG/ML 2 ML Injection ONE (14:00)
[2023-09-04] MEDS ORDERED: Amiodarone HCl 200 MG Tab PO SCH (21:00)
[2023-09-04] MEDS ORDERED: Metoprolol Succinate 50 MG TABCR PO SCH (21:00)
[2023-09-05] VITALS (9 sets, daily range): BP systolic 101–128; BP diastolic 58–98
--- NOTE | 2023-09-05 05:33 | NUR ---
PT SUMMARY: NO ACUTE CHANGE FOR THE SHIFT, VITALS HAS BEEN STABLE POST PACER, HRR ELEVATED UP TO 140'S WITH EXERTION, PT IN AND OUT OF SR AND AFIB MOSTLY IN AFIB T/O SHIFT. PACEMAKER SITE WITH DRESSING CDI, ICE PACK OVER THE SITE PER PT'S REQUESTS ALSO SOME TYLENOL FOR PAIN. SLING ON LEFT ARM APPLIED PT EDUCATED/INSTRUCTED POST PACEMAKER PLACEMENT. PT HAS BEEN CALLING APPROPRIATELY, USING BSC FOR TOILETING DENIES ANY DIZZINESS WITH AMBULATION, DENIES CHEST PAIN/PRESSURE. NO OTHER ISSUES ENCOUNTERED FOR THE SHIFT, WILL REPORT TO ONCOMING SHIFT
--- NOTE | 2023-09-05 08:11 | NUR ---
Assumed care of pt at 0700. Pt A&O x 4. Answers questions, follows commands, verbalizes needs. Pleasant and cooperative with care. Up to bathroom using cane to mobilize. HR in low 100s. Dr Pandya in to see patient. Discussed HR and provider states he will be adjusting AM meds.
[2023-09-05] MEDS ORDERED: Metoprolol Succinate 50 MG TABCR PO SCH (09:00)
[2023-09-05] MEDS ORDERED: Diltiazem HCl 180 MG Cap.CD PO SCH (09:00)
[2023-09-05] MEDS ORDERED: Aspirin 81 MG TabEC PO SCH (10:00)
[2023-09-05] MEDS ORDERED: NS 250 ML IV PRN (15:00)
--- NOTE | 2023-09-05 16:55 | NUR ---
SUMMARY A&O x 4. Answers questions, follows commands, verbalizes needs. Pleasant and cooperative with care. OOB several times this shift to chair and to use bathroom. Ambulates with one person assist with cane which she uses at baseline and with gait belt. FWW not used as left arm remains in sling related to pacemaker insertion. Has been in atrial fibrillation / flutter with rate 80s to low 100s at rest and 120s with activity. Dr Pandya increased doses of pt's meds today. Pt has tolerated adjustments well.
--- NOTE | 2023-09-05 20:38 | NUR ---
ASSUMED CARE OF PATIENT AT 1900. REPORT RECEIVED FROM DONAVON, RN + ANGELINA, 2ND YEAR CANCER PROGRAM COORDINATOR. VSS AND NO ACUTE NEEDS IDENTIFIED AT THIS TIME. NS AND METRONIDAZOLE INFUSING TO L ARM. SEE SHIFT ASSESSMENT FOR FULL ASSESSMENT DETAILS.
[2023-09-06 04:30] VITALS: BP 111/57
--- NOTE | 2023-09-06 05:39 | NUR ---
SHIFT SUMMARY PT REMAINED A&O X 4 T/O ENTIRETY OF SHIFT. AFEBRILE. SHE IS ABLE TO FOLLOW VERBAL COMMANDS AND MAKE PURPOSEFUL MOVEMENTS, ALTHOUGH WEAK. MOVEMENT OF L SIDE IS LIMITED D/T PACEMAKER PLACEMENT AND PRESENCE OF POSTPROCEDURAL SLING. REPORTS HEADACHE AND RIB/ABD PAIN. MEDICATED PER EMAR WITH GOOD BENEFIT. MONITOR SHOWED AFIB AND SR, PACED, WITH HR IN 60's-110's. BP STABLE WITH SBP's IN 110's. ON ROOM AIR WITH O2 SATURATIONS > 90%. AM SHIFT REPORTED PT UTILIZED FLUTTER VALVE WITH GOOD BENEFIT AND WAS ABLE TO CLEAR SECRETIONS T/O PM SHIFT. 4 BM's THIS SHIFT, AMBULATES WITH ASSISTANCE TO BSC. LIQUID DIET ORDERS IN PLACE. DARK YELLOW URINE OUTPUT. POWERGLIDE TO CHAITANYA INFUSING NS. PIV TO ANNETTE FLUSHES. CALL LIGHT IN REACH. WILL CONTINUE TO MONITOR AND REPORT TO ONCOMING RN.
[2023-09-06] MEDS ORDERED: Levothyroxine Sodium 0.1 MG Tab PO SCH (06:00)
[2023-09-06 07:54] VITALS: BP 111/57
--- NOTE | 2023-09-06 09:13 | NUR ---
AM NOTE: PATIENT ALERT AND ORIENTED. PERRLA, WEARING GLASSES. DENIES NUMBNESS/TINGLING. UP TO RECLINER WITH ONE PERSON ASSIST. ABLE TO USE CANE AT BASELINE. UP WALKING WITH THIS RN. PT ORDERS IN PLACE. LEFT SHOULDER PRECAUTIONS POST PACER PLACEMENT. ON ROOM AIR SATING ABOVE 95%. LUNGS SOUNDS DIMINISHED. PATIENT WITH BASELINE COPD. BREATHING TREATMENTS NEEDED. FLUTTER VALVE AT BEDSIDE. EVEN AND UNLABORED RESPIRTATIONS. TELE SHOWING SR WITH OCCASIONAL PACED BEATS. HR 60-70'S. CHEST PAIN/PRESSURE. SOME MILD SORENESS TO LEFT SHOULDER, RESOLVED WITH PO TYLENOL. PPP. DR. CHRISTIANSON IN THIS AM TO ASSESS, THIS RN AT BEDSIDE FOR PROVIDER ROUNDING. BOWEL TONES PRESENT. PATIENT REPORTS HAVING LOOSE STOOLS AND REMAINS "UNCOMFORTABLE" FROM COLITIS. TOLERATING FULL LIQUID AT THIS TIME. NO ISSUES WITH URINATION. ATTENDS IN PLACE. DENIES ABDOMINAL PAIN UPON PALPATION. SKIN OVERALL PALE WITH SOME SCATTERED BRUISING TO ARMS. PATIENT DAUGHTER AT BEDSIDE FOR DR. CHRISTIANSON ROUNDING. IV'S SALINE LOCKED. CALL LIGHT IN REACH. PATIENT SITTING UP IN RECLINER AT THIS TIME.
[2023-09-06 11:02] VITALS: BP 118/55
[2023-09-06] MEDS ORDERED: METO50ER PO (11:30)
[2023-09-06] MEDS ORDERED: LEVSOD100 PO (11:32)
[2023-09-06] MEDS ORDERED: Amiodarone HCl200 MG PO (11:36)
[2023-09-06] MEDS ORDERED: DILT120 PO (11:37)
[2023-09-06] MEDS ORDERED: XARELTO20 MG PO (11:38)
--- NOTE | 2023-09-06 13:00 | NUR ---
DISCHARGE: NO ACUTE CHANGES. PATIENT DAUGHTER AT BEDSIDE FOR DISCHARGE INSTRUCTIONS. THIS RN REVIEWED POST PACER PRECAUTIONS, WOUND AND PACER APPOINTMENT, APPOINTMENT WITH PCP, NEW MEDICATIONS, MEDICATIONS TO STOP, AMIO TAPER DOSING, WHEN TO START XARELTO, PACER CARD, SIGNS AND SYMPTOMS OF WHEN TO COME BACK, MONITORING BLOOD PRESSURE AND HR AND FOLLOWING UP WITH GI ONCE SEEN BY PCP. PATIENT LEFT UNIT WITH ALL PERSONAL BELONGINGS INCLUDING DISCHARGE PACKET AND PACER CARD. IV'S REMOVED WNL.
[2023-09-07] MEDS ORDERED: dilTIAZem HCL 120 MG CAP.CD PO SCH (09:00)
== END 2023-09-06 13:06 | disposition home or self-care (01) | DRG 243 ==
LOC: ER 02:11 → ERHOLD 02:12 → PCU 02:12
PROVIDERS: Emergency Medicine; Internal Medicine; Internal Medicine Interventional Cardiology; ADMIT Internal Medicine
PROC: 0JH606Z Insertion of Pacemaker, Dual Chamber into Chest Subcutaneous Tissue and Fascia, Open Approach (ICD-10-PCS; principal; 2023-09-04)
PROC: 02H63JZ Insertion of Pacemaker Lead into Right Atrium, Percutaneous Approach (ICD-10-PCS; 2023-09-04)
PROC: 02HK3JZ Insertion of Pacemaker Lead into Right Ventricle, Percutaneous Approach (ICD-10-PCS; 2023-09-04)
DX: I49.5 Sick sinus syndrome (principal); I48.92 Unspecified atrial flutter; Z66 Do not resuscitate; I48.0 Paroxysmal atrial fibrillation; K52.9 Noninfective gastroenteritis and colitis, unspecified; E03.9 Hypothyroidism, unspecified; I10 Essential (primary) hypertension; J44.9 Chronic obstructive pulmonary disease, unspecified; K21.9 Gastro-esophageal reflux disease without esophagitis; E86.0 Dehydration; E83.42 Hypomagnesemia; Z79.82 Long term (current) use of aspirin; Z79.890 Hormone replacement therapy; I25.2 Old myocardial infarction; Z87.891 Personal history of nicotine dependence; Z95.5 Presence of coronary angioplasty implant and graft; Z28.21 Immunization not carried out because of patient refusal
CPT/HCPCS: 0241U; 33208; 36415; 71045; 71046; 74177; 80048; 80053; 81001; 83605; 83690; 83735; 84100; 84439; 84443; 84481; 84484; 85014; 85018; 85025; 85049; 85379; 85610; 85730; 87086; 93005; 93010; 93306; 94640; 94760; 94762; 96361; 96365-59; 96366; 96367; 96368; 96375; 96376; 97110; 97161; 99152; 99153; 99285-25; A9270; C1785; C1894; C1898; G0378; J0282; J0690; J0696; J1644; J1885; J2250; J3010; J3475; J7030; J7040; J7050; J7060; Q9967

== ENCOUNTER 2024-08-13 13:56 | Emergency (ER) | payer MEDICARE ==
[~2024-08-13] VITALS: Ht 157.5 cm; Wt 88.5 kg
[~2024-08-13 13:56] MED LIST changes: +ALBU90OI INH; +ASPI81CH PO; +ATOR40TA PO; +Amiodarone HCl200 MG PO; +CEFD300 PO; +DILT60 PO; +Flonase 0.05% N16 GM; +LEVSOD100 PO; +Lexapro20 MG PO; +METO50ER PO; +MONT10T PO; +SPIRIVA RESPIMAT4 G3 INH; +XARELTO20 MG PO
[2024-08-13 14:43] VITALS: BP 120/50
[2024-08-13 15:18] LABS: BASOPHILS ABSOLUTE AUTO 0.08 K/mm3 (0.00-0.23); BASOPHILS PERCENT AUTO 1 % (0-2); EOSINOPHILS ABSOLUTE AUTO 0.57 K/mm3 (0.00-0.68); EOSINOPHILS PERCENT AUTO 7 % (0-6); Hematocrit 44.6 % (33.0-51.0); Hemoglobin 14.6 g/dL (11.5-16.0); IMMATURE GRAN ABSOLUTE AUTO 0.04 K/mm3 (0.00-0.10); IMMATURE GRAN PERCENT AUTO 1 % (0-1); LYMPHOCYTES ABSOLUTE AUTO 1.89 K/mm3 (0.84-5.20); LYMPHOCYTES PERCENT AUTO 24 % (21-46); MONOCYTES ABSOLUTE AUTO 0.68 K/mm3 (0.16-1.47); MONOCYTES PERCENT AUTO 9 % (4-13); Mean Corpuscular HGB 31.9 pg (26.0-34.0); Mean Corpuscular HGB Conc 32.7 g/dL (31.5-36.5); Mean Corpuscular Volume 97 fL (80-100); Mean Platelet Volume 9.8 fL (9.1-12.4); NEUTROPHILS ABSOLUTE AUTO 4.65 K/mm3 (1.96-9.15); NEUTROPHILS PERCENT AUTO 59 % (41-73); Platelet Count 220 K/mm3 (150-400); RDW Coefficient Variation 15.7 % (11.7-14.2); RDW Standard Deviation 56.6 fL (35.1-46.3); Red Blood Cell Count 4.58 M/mm3 (3.80-5.20); White Blood Cell Count 7.91 K/mm3 (4.00-11.30)
[2024-08-13 15:43] LABS: CORONAVIRUS COVID-19 AG Negative (NEGATIVE); INFLUENZA A AG Negative (NEGATIVE); INFLUENZA B AG Negative (NEGATIVE)
[2024-08-13 15:45] LABS: Albumin, Blood 3.4 g/dL (3.4-5.0); Albumin/Globulin Ratio 0.9 (0.8-1.8); Bilirubin, Total 0.7 mg/dL (0.1-1.0); Bun/Creatinine Ratio 19.5 (12.0-20.0); Calcium, Blood 8.9 mg/dL (8.5-10.1); Creatinine, Blood 1.13 mg/dL (0.40-1.00); Globulin, Blood 3.6 g/dL (2.2-4.0); Potassium, Blood 4.1 mmol/L (3.5-5.5)
[2024-08-13 16:26] LABS: Source, Urine Clean Catch
[2024-08-13 16:30] LABS: Appearance, Urine Hazy (Clear); Bilirubin, Urine Neg (Neg); Blood, Urine 1+ (Neg); Color, Urine Yellow (P-Yellow); Glucose Qualitative, Urine Neg (Neg); Ketones, Urine Neg (Neg); Leukocyte Esterase, Urine 3+ (Neg); Nitrite, Urine Neg (Neg); Protein, Urine 1+ (Neg); Specific Gravity, Urine 1.025 (1.003-1.022); Urobilinogen, Urine NORM (Normal)
[2024-08-13 16:48] LABS: Bacteria Mod /hpf; Red Blood Cells, Urine 0-2 /hpf (0-2); Squamous Epithelial Cells Mod /hpf (Few)
[2024-08-13] MEDS ORDERED: MethylPREDNISolone Sod Succ 125 MG Vial IV ONE (17:45)
[2024-08-13] MEDS ORDERED: Ipratropium/Albuterol SulF 2.5-0.5MG/3 ML Amp INH ONE (17:45)
[2024-08-13] MEDS ORDERED: Doxycycline Hyclate 100 MG TAB PO ONE (17:45)
[2024-08-13] MEDS ORDERED: PRED20 PO (18:35)
[2024-08-13] MEDS ORDERED: DOXY100 PO (18:35)
== END 2024-08-13 18:55 | disposition home or self-care (01) ==
LOC: ER 13:56
PROVIDERS: Student in an Organized Health Care Education/Training Program
DX: J44.1 Chronic obstructive pulmonary disease with (acute) exacerbation (principal); E03.9 Hypothyroidism, unspecified; K21.9 Gastro-esophageal reflux disease without esophagitis; I48.91 Unspecified atrial fibrillation; Z87.891 Personal history of nicotine dependence; Z79.51 Long term (current) use of inhaled steroids; Z79.82 Long term (current) use of aspirin; Z79.899 Other long term (current) drug therapy; Z88.0 Allergy status to penicillin; Z88.1 Allergy status to other antibiotic agents; Z88.5 Allergy status to narcotic agent; Z91.011 Allergy to milk products; Z88.8 Allergy status to other drugs, medicaments and biological substances
CPT/HCPCS: 71046; 80053; 81001; 85025; 87086; 87428-QW; 93005; 93010; 94640; 94664; 96374; 99284-25; A9270; J2919

== ENCOUNTER 2025-06-01 21:53 | Inpatient (IN) | payer MEDICARE | END 2025-06-06 12:48 | disposition hospice, home (50) | DRG 291 | LOC: ER 21:53 → ERHOLD 06-02 00:44 → MEDS 06-02 02:10 | PROVIDERS: ADMIT Student in an Organized Health Care Education/Training Program | DX: I50.31 Acute diastolic (congestive) heart failure (principal); J96.01 Acute respiratory failure with hypoxia; J44.1 Chronic obstructive pulmonary disease with (acute) exacerbation; R18.8 Other ascites; J20.9 Acute bronchitis, unspecified; E03.9 Hypothyroidism, unspecified; K21.9 Gastro-esophageal reflux disease without esophagitis; I25.2 Old myocardial infarction; Z66 Do not resuscitate; Z51.5 Encounter for palliative care; F03.90 Unspecified dementia, unspecified severity, without behavioral disturbance, psychotic disturbance, mood disturbance, and anxiety; K74.60 Unspecified cirrhosis of liver; I48.0 Paroxysmal atrial fibrillation; R13.10 Dysphagia, unspecified; Z90.49 Acquired absence of other specified parts of digestive tract; Z95.0 Presence of cardiac pacemaker; Z98.890 Other specified postprocedural states; Z98.49 Cataract extraction status, unspecified eye; Z87.891 Personal history of nicotine dependence; Z79.01 Long term (current) use of anticoagulants; Z79.51 Long term (current) use of inhaled steroids; Z79.52 Long term (current) use of systemic steroids; Z79.82 Long term (current) use of aspirin; Z79.890 Hormone replacement therapy; Z79.899 Other long term (current) drug therapy; Z88.1 Allergy status to other antibiotic agents; Z88.5 Allergy status to narcotic agent; Z88.8 Allergy status to other drugs, medicaments and biological substances; Z91.0110 Allergy to milk products, unspecified ==